=== PATIENT | male | born 1950 | race African-American/Black ===

== ENCOUNTER 2018-03-15 06:55 | Emergency (ER) | payer OTHER ==
[2018-03-15 07:11] VITALS: BMI 28.5
[2018-03-15] MEDS ORDERED: TORADOL 30 MG VIAL IVP STA (07:25)
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
[2018-03-15] MEDS ORDERED: TORADOL 30 MG VIAL ONE (07:35)
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
[2018-03-15 09:47] VITALS: BP 157/93
== END 2018-03-15 10:00 | disposition home or self-care (01) ==
LOC: ER 07:11
DX: S30.0XXA Contusion of lower back and pelvis, initial encounter (principal); Z04.1 Encounter for examination and observation following transport accident; M54.5 Low back pain; I10 Essential (primary) hypertension; G31.9 Degenerative disease of nervous system, unspecified; R10.2 Pelvic and perineal pain; V89.2XXA Person injured in unspecified motor-vehicle accident, traffic, initial encounter
CPT/HCPCS: 70450; 71250; 72125; 72131; 72192; 96365; 96374; 99282; 99283; J1885